=== PATIENT | female | born 1990 | race Caucasian/White ===

== ENCOUNTER 2018-02-17 17:01 | Emergency (ER) | payer MEDICAID ==
[2018-02-17] MEDS: morphine 4 MG/ML VIAL IM (17:52)
[2018-02-17] MEDS: OXYCODONE/ACETAMINOPHEN (5/325) TAB PO (19:15)
[2018-02-17] MEDS: IBUPROFEN 600 MG TAB PO (19:15)
== END 2018-02-17 19:46 | disposition home or self-care (01) ==
LOC: E/R 17:01
DX: S20.212A Contusion of left front wall of thorax, initial encounter (principal); V49.40XA Driver injured in collision with unspecified motor vehicles in traffic accident, initial encounter
CPT/HCPCS: 71100; 81025; 96372; 99284-25